=== PATIENT | female | born 1955 | race Caucasian/White ===

== ENCOUNTER 2016-09-28 15:16 | Observation (INO) | payer BC ==
[~2016-09-28] VITALS: Ht 172.7 cm; Wt 77.2 kg
[~2016-09-28 15:16] MED LIST: MULT-506 PO; [UNRECOGNIZED DRUG - CODE] PO
[2016-09-28] MEDS ORDERED: ASPIRIN 324 MG CHEW PO STA (15:37)
[2016-09-28] MEDS ORDERED: NITROGLYCERIN OINT 2% 1GM PACKET EXT ONE (15:45)
--- NOTE | 2016-09-28 15:54 | DIAGNOSTIC IMAGING REPORT ---
SINGLE VIEW CHEST CLINICAL HISTORY: Atypical chest pain. Dyspnea. FINDINGS: An AP, portable, upright chest radiograph is obtained. No prior studies are available for comparison at the time of dictation. The examination is degraded by portable technique and patient rotation. The cardiomediastinal silhouette is unremarkable. A calcified granuloma is seen in the left upper lobe. There are mild bibasilar airspace opacities. No large pleural effusion or pneumothorax is seen. The skeletal structures are osteopenic. The bony thorax is grossly intact. IMPRESSION: There are mild bibasilar airspace opacities. This could represent atelectasis versus an infectious/inflammatory pneumonitis. Clinical correlation will be required. Electronically signed by: Deniz Vazquez M.D. 09/28/2016 3:51 PM Dictated Date/Time: 09/28/2016 3:50 PM
[2016-09-28 16:06] LABS: BASO % 0.6 %; BASO ABS # 0.05 K/uL (0-0.2); COMPLETE YES; HEMATOCRIT 42.8 % (37-47); IG% 0.1 %; LYMPH ABS # 1.46 K/uL (1.2-3.4); MEAN CELL VOLUME 86.5 fL (80-100); MEAN CORPUSCULAR HEMOGLOBIN 29.9 pg (25-34); MEAN CORPUSCULAR HGB CONC 34.6 g/dl (32-36); MEAN PLATELET VOLUME 9.2 fL (7.4-10.4); MONO % 6.2 %; NEUT % 75.1 %; PLATELET COUNT 320 K/uL (130-400); RED BLOOD COUNT 4.95 M/uL (4.2-5.4); WHITE BLOOD COUNT 8.61 K/uL (4.8-10.8)
[2016-09-28 16:19] LABS: PARTIAL THROMBOPLASTIN RATIO 1.1; PROTHROMBIN TIME (PATIENT) 10.8 SECONDS (9.0-12.0)
[2016-09-28 16:25] LABS: BUN/CREATININE RATIO 16.5 (10-20); CALCIUM 9.4 mg/dl (8.5-10.1); CREATININE 0.87 mg/dl (0.60-1.20)
[2016-09-28] MEDS ORDERED: ONDANSETRON INJ 2 MG/ML 2 ML VIAL IV PRN (17:15)
[2016-09-28] MEDS ORDERED: NITROGLYCERIN 0.4 MG SL PER TAB CHARGE SL PRN (17:15)
[2016-09-28] MEDS ORDERED: ACETAMINOPHEN 325 MG TAB PO PRN (17:15)
[2016-09-28] MEDS ORDERED: CLORAZEPATE DIPOTASSIUM 3.75 MG TAB PO PRN (17:30)
--- NOTE | 2016-09-28 18:02 | History and Physical ---
History & Physical Date & Time of Service: Sep 28, 2016 at 17:20 Chief Complaint: Hypertension, Shortness Of Breath Primary Care Physician: Jay Fritz MD History of Present Illness Source: patient This is a 61 y/o female with PMHx as outlined below who presents to the ED c/o chest discomfort that began prior to arrival. Pt reports that a few weeks ago she developed chest pain after an intense workout. She describes the pain as 5/ 10 central chest "pressure" that radiated to the jaw. Her sxs eventually resolved with rest. Since that time, patient has noticed that her heart pounds and she is more SOB with minimal exertion especially walking up steps. Pt has been doing yoga but she has not attempted her usual workout routine for the past few weeks as she does not think she would be able to do it. This morning patient experienced mild chest "tightness" that did not radiate anywhere. She took her BP which was recorded at 200/100. Patient has never had issues with elevated blood pressure.The chest tightness resolved shortly after she took a clorazepate prior to arrival to the ED. Patient has never had similar sxs. She denies FmHx of cardiac disease. She denies history of tobacco use. Pt denies fever/chills, diaphoresis, palpitations, SOB, wheezing, abd pain, N/V, bowel or bladder issues, LE edema ,calf pain, lightheadedness/dizziness. In the ED, BP was 191/121 on arrival. It is now 157/92. Pt is afebrile with no leukocytosis. Initial troponin is negative and EKG shows no acute ischemic changes. Pt is currently chest pain free. She will be admitted for further evaluation and treatment. Past Medical/Surgical History Medical Problems: (1) Anxiety Status: Chronic Surgical Problems: (1) History of removal of ovarian cyst Permanent Comment: 1991 Status: Resolved Social History Smoking Status: Never Smoker Alcohol Use: socially Drug Use: none Marital Status: Housing status: lives with significant other Occupational Status: employed Multi-Drug Resistant Organisms History of MDRO: No Allergies Coded Allergies: No Known Allergies (Verified , 09/28/16) Home Medications Scheduled PRN Clorazepate Dipotassium (Tranxene T), 7.5 MG PO DAILY PRN for Anxiety Review of Systems Constitutional: No chills, No fatigue, No fever, No sweats, No weakness Eyes: No worsening of vision ENT: No hearing loss Respiratory: + dyspnea on exertion, + shortness of breath, No cough, No dyspnea at rest Cardiovascular: + chest pain, No claudication, No edema, No palpitations Abdomen: No constipation, No diarrhea, No nausea, No pain, No vomiting Musculoskeletal: No calf pain, No swelling Genitourinary - Female: No dysuria Neurologic: No weakness Psychiatric: No depression symptoms Endocrine: No fatigue Hematologic / Lymphatic: No abnormal bleeding/bruising Integumentary: No new/changing skin lesions Physical Exam Vital Signs Date Time Temp Pulse Resp B/P Pulse Ox O2 Delivery O2 Flow Rate FiO2 09/28/16 16:09 86 09/28/16 16:06 82 20 136/116 94 Room Air 09/28/16 15:22 36.7 110 18 191/121 95 Room Air General Appearance: WD/WN, no apparent distress, + pertinent finding (Pt is sitting up in bed with and daughter at bedside ) Head: normocephalic, atraumatic Eyes: normal inspection ENT: hearing grossly normal Neck: supple Respiratory/Chest: chest non-tender, lungs clear, normal breath sounds, no respiratory distress Cardiovascular: regular rate, rhythm, no edema, no murmur Abdomen/GI: normal bowel sounds, non tender, soft Back: normal inspection Extremities/Musculoskelatal: normal inspection, no calf tenderness, no pedal edema Neurologic/Psych: alert, normal mood/affect, oriented x 3 Skin: normal color, warm/dry Diagnostics Laboratory Results Results Past 24 Hours Test 09/28/16 15:50 09/28/16 15:56 Range/Units White Blood Count 8.61 4.8-10.8 K/uL Red Blood Count 4.95 4.2-5.4 M/uL Hemoglobin 14.8 12.0-16.0 g/dL Hematocrit 42.8 37-47 % Mean Corpuscular Volume 86.5 80-100 fL Mean Corpuscular Hemoglobin 29.9 25-34 pg Mean Corpuscular Hemoglobin Concent 34.6 32-36 g/dl Platelet Count 320 130-400 K/uL Mean Platelet Volume 9.2 7.4-10.4 fL Neutrophils (%) (Auto) 75.1 % Lymphocytes (%) (Auto) 17.0 % Monocytes (%) (Auto) 6.2 % Eosinophils (%) (Auto) 1.0 % Basophils (%) (Auto) 0.6 % Neutrophils # (Auto) 6.47 1.4-6.5 K/uL Lymphocytes # (Auto) 1.46 1.2-3.4 K/uL Monocytes # (Auto) 0.53 0.11-0.59 K/uL Eosinophils # (Auto) 0.09 0-0.5 K/uL Basophils # (Auto) 0.05 0-0.2 K/uL RDW Standard Deviation 41.9 36.4-46.3 fL RDW Coefficient of Variation 13.2 11.5-14.5 % Immature Granulocyte % (Auto) 0.1 % Immature Granulocyte # (Auto) 0.01 0.00-0.02 K/uL Prothrombin Time 10.8 9.0-12.0 SECONDS Prothromb Time International Ratio 1.0 0.9-1.1 Activated Partial Thromboplast Time 29.4 21.0-31.0 SECONDS Partial Thromboplastin Ratio 1.1 Sodium Level 140 136-145 mmol/L Potassium Level 4.0 3.5-5.1 mmol/L Chloride Level 104 98-107 mmol/L Carbon Dioxide Level 29 21-32 mmol/L Anion Gap 7.0 3-11 mmol/L Blood Urea Nitrogen 14 7-18 mg/dl Creatinine 0.87 0.60-1.20 mg/dl Est Creatinine Clear Calc Drug Dose 74.7 ml/min Estimated GFR () 83.3 Estimated GFR (Non- 71.9 BUN/Creatinine Ratio 16.5 10-20 Random Glucose 99 70-99 mg/dl Calcium Level 9.4 8.5-10.1 mg/dl Bedside Troponin I 0.000 0-0.045 ng/ml Diagnostic Radiology CXR IMPRESSION: There are mild bibasilar airspace opacities. This could represent atelectasis versus an infectious/inflammatory pneumonitis. Clinical correlation will be required. EKG EKG: NSR at 84 bpm with no acute ischemic changes noted; no change when compared with EKG from 08/31/15 Impression Assessment and Plan EXERTIONAL CHEST PAIN AND SOB; R/O ACS pt presented with a few weeks of exertional chest pain and SOB; no prior cardiac history -observation status to telemetry -no cardiac risk factors; chest discomfort may be related to significant elevation in BP (190s/120s in ED) -EKG shows NSR with no acute ischemic changes; repeat EKG PRN chest pain and in AM -Initial troponin is negative; continue to monitor with serial cardiac enzymes q6h -obtain echo to r/o cardiac wall motion abnormalities -check fasting lipid profile in AM -start ASA -consult cardiology, Dr. Dunn-pending input -pt is currently chest pain free -continue to monitor HYPERTENSIVE URGENCY -BP 191/121-improved with nitro paste; now 150s/90s -may be contributing to chest discomfort -consider PRN antihypertensive agents -continue to monitor closely DVT PROPHYLAXIS -subq Lovenox CODE STATUS -FULL CODE status DISPO Observation status until further workup is complete. Pt seen in collaboration with Dr. Vasquez. Please see his addendum for further details. Thanks! -Of note: patient will be seen by starting tomorrow AM. VTE Prophylaxis VTE Risk Assessment Done? Y/N: Yes Risk Level: Low Note ATTENDING ADDENDUM Record reviewed. Patient interviewed and examined in ED @ 18:15. Care coordinated with Kellie Butler PA-C. Please refer to her documentation for patient's history. Briefly, 61 YO female who is physically active and enjoys excellent health. Experiencing chest pressure and dyspnea on exertion over last 2 wks, initially while performing aerobic exercises. No noticing symptoms with low-moderate exertion. EXAM: General- no distress VS- as noted Neck- no JVD, carotids 2/2 bilat Lungs- clear to A&P Heart- RRR, no murmur, gallop, or rub appreciated Abdomen- + BS, soft, nontender Extremities- no pretibial edema or calf tenderness; radial and pedal pulses intact and symmetric Neuro- alert, oriented DATA: CBC, BUN, creatinine, potassium normal. Troponin I normal. Other lab studies as noted. CXR- "mild bibasilar opacities ... atelectasis vs an infectious / inflammatory pneumonitis" per Radiology. EKG performed at 15:56 reviewed and demonstrated NSR at 84 / minute, biphasic T- waves III, [address] depression V6. . ASSESSMENT AND PLAN: Recent onset exertional chest pressure and dyspnea. LDL cholesterol in clinic last year was 160. BP 191/121 upon presentation to ED. No history of hypertension; systolic BP usually runs around 140. No other risk factors for ischemic heart disease. Check serial cardiac markers and EKG's. Check rest echo. Consult Cardiology. Most likely that elevated BP is situational. Will follow and treat significantly elevated BP's as necessary. May need initiation of maintenance antihypertensive therapy if BP's remain elevated. ? abnormal chest x-ray as noted. No fever or cough. Doubt infectious process. Please refer to LOLA Butler's documentation for discussion of other issues. Abdelrahman Vasquez MD .
--- NOTE | 2016-09-28 18:16 | EMERGENCY ROOM VISIT NOTE ---
History Report prepared by Ariel: Nae Giordano Under the Supervision of: Dr. Michael Luna M.D. First contact with patient: 15:30 Chief Complaint: HYPERTENSION Stated Complaint: HYPERTENSION, SHORTNESS OF BREATH History of Present Illness The patient is a 61 year old female who presents to the Emergency Room with complaints of worsening shortness of breath that began a few weeks ago. The patient states that she did a hard work out and afterwards, noticed chest pain and jaw pain that resolved on its own. Since then, she has had increasing shortness of breath with exertion. She notes that she gets winded when she walks up stairs, which is unusual for her. She also develops chest tightness and a heart pounding sensation with exertion. She had chest tightness earlier today while she was exerting herself. Currently, she is not having any chest pain or tightness. The patient has been monitoring her blood pressure and noticed that it was elevated today. She has never been medicated for high blood pressure. She has not done any exercise other than yoga since her symptoms began a few weeks ago. Denies Cialis or Viagra use. Denies fevers, cough, sweating, nausea, vomiting, diarrhea, or other complaints. She reports a history of anxiety. The patient does not have a history of diabetes or hypertension. She is not a smoker. Source of History: patient Onset: a few weeks ago Position: other (global) Quality: other (shortness of breath) Timing: worsening Modifying Factors (Relieving): exertion Associated Symptoms: No cough, No diarrhea, No fevers, No nausea, No vomiting Note: Other symptoms: chest tightness & heart pounding with exertion Review of Systems See HPI for pertinent positives & negatives. A total of 10 systems reviewed and were otherwise negative. Past Medical & Surgical Medical Problems: (1) Anxiety (2) Chest pain Surgical Problems: (1) History of removal of ovarian cyst Family History No pertinent family history stated. Social History Smoking Status: Never Smoker Marital Status: Occupation Status: employed Current/Historical Medications Scheduled PRN Clorazepate Dipotassium (Tranxene T), 7.5 MG PO DAILY PRN for Anxiety Allergies Coded Allergies: No Known Allergies (Verified , 09/28/16) Physical Exam Vital Signs Date Time Temp Pulse Resp B/P Pulse Ox O2 Delivery O2 Flow Rate FiO2 09/28/16 17:00 85 18 157/92 95 Room Air 09/28/16 16:09 86 09/28/16 16:06 82 20 136/116 94 Room Air 09/28/16 15:22 36.7 110 18 191/121 95 Room Air Physical Exam Constitutional: Vital signs reviewed. Noted to be hypertensive. Eyes: Pupils are equal round reactive to light. Conjunctiva are noninjected. ENT: Pharynx is clear without erythema or exudate. Mucous membranes are moist. Neck supple without meningeal signs. Respiratory: Clear to auscultation bilaterally. Breath sounds are equal bilaterally. Cardiovascular: Regular rate and rhythm. No rubs or gallops. GI: Soft, nondistended and nontender. Bowel sounds are present. Musculoskeletal: No peripheral edema. No lower extremity tenderness. Integumentary: No cyanosis. Neurological: The patient is awake and alert. No focal deficits. Psychiatric: Normal affect. Medical Decision & Procedures ER Provider Diagnostic Interpretation: Radiology results as stated below per my review and the radiologist's interpretation: SINGLE VIEW CHEST CLINICAL HISTORY: Atypical chest pain. Dyspnea. FINDINGS: An AP, portable, upright chest radiograph is obtained. No prior studies are available for comparison at the time of dictation. The examination is degraded by portable technique and patient rotation. The cardiomediastinal silhouette is unremarkable. A calcified granuloma is seen in the left upper lobe. There are mild bibasilar airspace opacities. No large pleural effusion or pneumothorax is seen. The skeletal structures are osteopenic. The bony thorax is grossly intact. IMPRESSION: There are mild bibasilar airspace opacities. This could represent atelectasis versus an infectious/inflammatory pneumonitis. Clinical correlation will be required. Electronically signed by: Deniz Vazquez M.D. 09/28/2016 3:51 PM Dictated Date/Time: 09/28/2016 3:50 PM Laboratory Results 09/28/16 15:50 Red Blood Count 4.95, Mean Corpuscular Volume 86.5, Mean Corpuscular Hemoglobin 29.9, Mean Corpuscular Hemoglobin Concent 34.6, Mean Platelet Volume 9.2, Neutrophils (%) (Auto) 75.1, Lymphocytes (%) (Auto) 17.0, Monocytes (%) (Auto) 6.2, Eosinophils (%) (Auto) 1.0, Basophils (%) (Auto) 0.6, Neutrophils # (Auto) 6.47, Lymphocytes # (Auto) 1.46, Monocytes # (Auto) 0.53, Eosinophils # (Auto) 0.09, Basophils # (Auto) 0.05 09/28/16 15:50 Test 09/28/16 15:50 09/28/16 15:56 White Blood Count 8.61 K/uL (4.8-10.8) Red Blood Count 4.95 M/uL (4.2-5.4) Hemoglobin 14.8 g/dL (12.0-16.0) Hematocrit 42.8 % (37-47) Mean Corpuscular Volume 86.5 fL (80-100) Mean Corpuscular Hemoglobin 29.9 pg (25-34) Mean Corpuscular Hemoglobin Concent 34.6 g/dl (32-36) Platelet Count 320 K/uL (130-400) Mean Platelet Volume 9.2 fL (7.4-10.4) Neutrophils (%) (Auto) 75.1 % Lymphocytes (%) (Auto) 17.0 % Monocytes (%) (Auto) 6.2 % Eosinophils (%) (Auto) 1.0 % Basophils (%) (Auto) 0.6 % Neutrophils # (Auto) 6.47 K/uL (1.4-6.5) Lymphocytes # (Auto) 1.46 K/uL (1.2-3.4) Monocytes # (Auto) 0.53 K/uL (0.11-0.59) Eosinophils # (Auto) 0.09 K/uL (0-0.5) Basophils # (Auto) 0.05 K/uL (0-0.2) RDW Standard Deviation 41.9 fL (36.4-46.3) RDW Coefficient of Variation 13.2 % (11.5-14.5) Immature Granulocyte % (Auto) 0.1 % Immature Granulocyte # (Auto) 0.01 K/uL (0.00-0.02) Prothrombin Time 10.8 SECONDS (9.0-12.0) Prothromb Time International Ratio 1.0 (0.9-1.1) Activated Partial Thromboplast Time 29.4 SECONDS (21.0-31.0) Partial Thromboplastin Ratio 1.1 Anion Gap 7.0 mmol/L (3-11) Est Creatinine Clear Calc Drug Dose 74.7 ml/min Estimated GFR () 83.3 Estimated GFR (Non- 71.9 BUN/Creatinine Ratio 16.5 (10-20) Calcium Level 9.4 mg/dl (8.5-10.1) Bedside Troponin I 0.000 ng/ml (0-0.045) Laboratory results as reviewed by me. Medications Administered Medications (Trade) Dose Ordered Sig/Blossom Route Start Time Stop Time Status Last Admin Dose Admin Aspirin (Aspirin Chew) 324 mg NOW STAT PO 09/28/16 15:37 09/28/16 15:39 DC 09/28/16 16:03 324 MG Nitroglycerin (Nitroglycerin 2% Oint) 1 inch NOW ONCE EXT 09/28/16 15:45 09/28/16 15:46 DC 09/28/16 16:03 1 INCH ECG Indication: SOB/dyspnea Rate (beats per minute): 84 Rhythm: normal sinus Findings: no acute ischemic change, no ectopy ED Course 1537: The patient was evaluated in room B4. A complete history and physical exam was performed. Ordered Aspirin 324 mg PO. 1545: Ordered Nitroglycerin 1 inch EXT. 1622: I reassessed the patient and discussed test results with her. She has no chest pain at this time. Her blood pressure improved to 136/116. She agreed with the treatment plan. 1625: I discussed the case with Dr. Pedro Fletcher Hospitalist. The patient will be evaluated for further management. Medical Decision This is a 61-year-old female who presents with chest pain with exertion. Differential diagnosis includes unstable angina, MT, CHF, GERD, anxiety. I did perform a limited focused review of portions of the patient's old chart on the electronic medical record. The patient has had no recent pertinent visits to this hospital. I did evaluate the patient as noted above. IV access was established. The patient was placed on a continuous panel monitor. The patient is hypertensive. She was given nitroglycerin paste and an aspirin. I did order and personally review the patient's 12-lead EKG and chest x-ray as described above. I did order and review the patient's blood work as noted in the electronic medical record. I did discuss the test results with the patient. I did recommend hospitalization for repeat cardiac enzymes and further evaluation. I did discuss the case with the hospitalist and correctional case manager. Consults Time Called: 1620 Consulting Physician: Dr. Pedro Fletcher Hospitalist Returned Call: [phone] I discussed the case with him. The patient will be evaluated for further management. Impression Primary Impression: Exertional chest pain Scribe Attestation The scribe's documentation has been prepared under my direct and personally reviewed by me in its entirety. I confirm that the note above accurately reflects all work, treatment, procedures, and medical decision making performed by me. Departure Information Dispostion Being Evaluated By Hospitalist Referrals Jay Fritz MD (PCP) Patient Instructions My [facility]
[2016-09-28] MEDS ORDERED: IV FLUIDS COMPLETED PRN (18:45)
[2016-09-28] MEDS ORDERED: LABETALOL HCL IV 5 MG/ML 20ML IV PRN (19:00)
[2016-09-28] MEDS ORDERED: CLONIDINE HCL 0.1 MG TAB PO PRN (19:00)
[2016-09-28 19:38] VITALS: BP 156/91; PULSE 79; TEMP 36.9; O2SAT 96; Ht 172.7 cm; Wt 77.2 kg
[2016-09-28 20:19] VITALS: O2SAT 96
[2016-09-28] MEDS: ENOXAPARIN 40 MG/0.4 ML SYR SC SCH (20:51)
[2016-09-28 23:37] VITALS: BP 112/71; PULSE 61; TEMP 36.5; O2SAT 96
[2016-09-28 23:59] VITALS: O2SAT 96
[2016-09-29] VITALS (11 sets, daily range): BP systolic 109–149; BP diastolic 68–82; PULSE 68–84; TEMP 36.5–36.9; O2SAT 94–99
[2016-09-29] MEDS: ASPIRIN 81 MG CHEW PO SCH (07:39)
[2016-09-29 08:27] LABS: CHOLESTEROL 251 mg/dl (0-200); CHOLESTEROL/HDL RATIO 3.6; HDL CHOLESTEROL 69 mg/dl; LDL CHOLESTEROL CALCULATED 157 mg/dl; TRIGLYCERIDES 123 mg/dl (0-150); VERY LOW DENSITY LIPOPROT CALC 25 mg/dl
[2016-09-29] MEDS ORDERED: AMLODIPINE BESYLATE 5 MG TAB PO ONE ×2 (10:15→16:00)
--- NOTE | 2016-09-29 11:12 | ECHOCARDIOGRAM REPORT ---
*NOTICE TO RECEIVING [employer] This information is strictly Confidential and protected under [place] law. [place] law prohibits you from making any further disclosure of this information unless further disclosure is expressly permitted by the written consent of the person to whom it pertains or is authorized by law. A general authorization for the release of medical or other information is not sufficient for this purpose. Hospital accepts no responsibility if the information is made available to any other person, INCLUDING THE PATIENT. Interpretation Summary * Name: TERESA STAUFFER Study Date: 09/29/2016 09:56 AM BP: 149/69 mmHg * Patient Location: C.2T\S\S236\S\1 HR: 79 * : 1955 (M/d/yy) Gender: Female Height: 67 in * Age: 61 yrs Ethnicity: [place] Weight: 173 lb * Ordering Physician: Kellie Butler * Referring Physician: Self, Referred * Performed By: Sumaya Alonso RDCS * * Reason For Study: CHEST PAIN * BSA: 1.9 m2 * History: CHEST PAIN * -- Conclusions -- * Normal LV chamber size with borderline concentric LVH. * Normal LV systolic function, EF 60-65%. * No segmental left ventricular wall motion abnormalities are noted. * Grade I diastolic dysfunction. * The mitral valve leaflets appear thickened, but open well. There is trace mitral regurgitation. There is no mitral valve stenosis. Procedure Details * A complete two-dimensional transthoracic echocardiogram was performed (2D, M-mode, Doppler and color flow Doppler). Left Ventricle * The left ventricle is normal in size. * There is borderline concentric left ventricular hypertrophy. * Ejection Fraction = 60-65%. * Left ventricular systolic function is normal. * No segmental left ventricular wall motion abnormalities are noted. * The left ventricular wall motion is normal. Right Ventricle * The right ventricular cavity size is normal (basal dimension <4.2 cm in right ventricular apical 4-chamber view). * The right ventricular systolic function is normal as assessed by tricuspid annular plane systolic excursion (TAPSE) (normal >1.5 cm). Atria * The left atrial size is normal. * Right atrial size is normal. * No ASD detected; PFO is not assessed. Mitral Valve * The mitral valve leaflets appear thickened, but open well. * There is no mitral valve stenosis. * There is trace mitral regurgitation. Tricuspid Valve * The tricuspid valve is normal in structure and function. Aortic Valve * The aortic valve is normal in structure and function. Pulmonic Valve * The pulmonary valve is not well seen, but the Doppler examination is normal without significant regurgitation or stenosis. Great Vessels * The aortic root and proximal ascending aorta are normal sized. Pericardium/Pleural * There is no pericardial effusion. Left Ventricular Diastolic Function * Grade I diastolic dysfunction, (abnormal relaxation pattern). MMode 2D Measurements and Calculations IVSd 1.0 cm IVSs 1.5 cm LVIDd 3.8 cm LVIDs 2.5 cm LVPWd 1.2 cm LVPWs 1.4 cm IVS/LVPW 0.87 FS 33.9 % EDV(Teich) 60.3 ml ESV(Teich) 22.0 ml EF(Teich) 63.5 % EDV(cubed) 53.1 ml ESV(cubed) 15.4 ml EF(cubed) 71.1 % % IVS thick 46.2 % % LVPW thick 19.1 % LV mass(C)d 136.6 grams LV mass(C)dI 71.9 grams/m\S\2 LV mass(C)s 122.2 grams LV mass(C)sI 64.3 grams/m\S\2 CO(Teich) 2.5 l/min CI(Teich) 1.3 l/min/m\S\2 SV(Teich) 38.3 ml SI(Teich) 20.2 ml/m\S\2 CO(cubed) 2.5 l/min CI(cubed) 1.3 l/min/m\S\2 SV(cubed) 37.7 ml SI(cubed) 19.8 ml/m\S\2 Ao root diam 2.8 cm Ao root area 6.3 cm\S\2 LA dimension 3.2 cm LA/Ao 1.1 LVAd ap4 26.3 cm\S\2 LVLd ap4 8.0 cm EDV(MOD-sp4) 71.0 ml LVAs ap4 13.9 cm\S\2 LVLs ap4 6.2 cm ESV(MOD-sp4) 26.0 ml EF(MOD-sp4) 63.4 % LVAd ap2 25.5 cm\S\2 LVLd ap2 7.9 cm EDV(MOD-sp2) 69.0 ml LVAs ap2 13.6 cm\S\2 LVLs ap2 5.9 cm ESV(MOD-sp2) 27.0 ml EF(MOD-sp2) 60.9 % CO(MOD-sp4) 3.0 l/min CI(MOD-sp4) 1.6 l/min/m\S\2 SV(MOD-sp4) 45.0 ml SI(MOD-sp4) 23.7 ml/m\S\2 CO(MOD-sp2) 2.8 l/min CI(MOD-sp2) 1.5 l/min/m\S\2 SV(MOD-sp2) 42.0 ml SI(MOD-sp2) 22.1 ml/m\S\2 Doppler Measurements and Calculations MV E max susana 57.8 cm/sec MV A max susana 69.1 cm/sec MV E/A 0.84 MV dec time 0.28 sec Ao V2 max 136.7 cm/sec Ao max PG 7.5 mmHg Ao max PG (full) 0.50 mmHg LV V1 max PG 7.0 mmHg LV V1 max 132.0 cm/sec MR max susana 499.1 cm/sec MR max PG 99.7 mmHg
--- NOTE | 2016-09-29 11:24 | Progress Note ---
Internal Med Progress Note Date of Service: Sep 29, 2016. Provider Documentation: SUBJECTIVE: Patient is seen and examined at bedside. Currently denies any chest pain, SOB, palpitations, dizziness, headache. Offers no complaints. Planned for stress test in AM. OBJECTIVE: Vital Signs-as noted below Physical Exam: General Appearance:Moderately built and nourished, no apparent distress Head: normocephalic, Atraumatic Eyes: normal inspection, EOMI, PERRLA Neck: supple, JVD, Trachea midline Respiratory/Chest: Normal breath sounds, CTA Cardiovascular: S1, S2, No murmur Abdomen/GI:Soft, Non tender, Bowel sounds present Extremities/Musculoskelatal:normal inspection, no edema Neurologic/Psych:AAOX3, grossly no focal neurological deficits Skin: normal color, warm Lab data as noted below. ASSESSMENT & PLAN: EXERTIONAL CHEST PAIN AND SOB; R/O ACS pt presented with a few weeks of exertional chest pain and SOB; no prior cardiac history Troponin X 2: Negative EKG: no acute ischemic changes TSH: pending ECHO:No segmental left ventricular wall motion abnormalities are noted Grade I diastolic dysfunction, EF:60-65% Planned for stress test in AM Appreciate Cardiology help Continue aspirin HYPERTENSIVE URGENCY Presented with BP 191/121-improved with nitro paste Not on HTN meds at home Continue amlodipine which was started this admission Follow up renal artery duplex , metanephrines Currently BP controlled ANXIETY DISORDER: Continue home meds DVT PROPHYLAXIS SQ Lovenox CODE STATUS FULL CODE DISPOSITION: Continue monitoring in Tele PROCEDURES: ECHO: * Normal LV chamber size with borderline concentric LVH. * Normal LV systolic function, EF 60-65%. * No segmental left ventricular wall motion abnormalities are noted. * Grade I diastolic dysfunction. * The mitral valve leaflets appear thickened, but open well. There is trace mitral regurgitation. There is no mitral valve stenosis. Vital Signs: Date Time Temp Pulse Resp B/P Pulse Ox O2 Delivery O2 Flow Rate FiO2 09/29/16 15:20 36.9 79 17 131/82 94 Room Air 09/29/16 12:00 96 Room Air 09/29/16 11:11 36.7 76 16 137/74 94 Room Air 09/29/16 09:22 18 149/69 99 Room Air 09/29/16 08:09 36.5 79 20 125/81 96 Room Air 09/29/16 08:00 96 Room Air 09/29/16 04:00 96 Room Air 09/29/16 03:19 36.5 68 15 125/68 97 Room Air 09/28/16 23:59 96 Room Air 09/28/16 23:37 36.5 61 15 112/71 96 Room Air 09/28/16 20:19 96 Room Air 09/28/16 19:38 36.9 79 18 156/91 96 Room Air 09/28/16 19:01 85 20 141/87 95 Room Air Lab Results: Results Past 24 Hours Test 09/28/16 22:15 09/29/16 05:45 09/29/16 15:32 Range/Units Troponin I < 0.015 < 0.015 0-0.045 ng/ml Triglycerides Level 123 0-150 mg/dl Cholesterol Level 251 0-200 mg/dl HDL Cholesterol 69 mg/dl LDL Cholesterol, Calculated 157 mg/dl VLDL Cholesterol, Calculated 25 mg/dl Cholesterol/HDL Ratio 3.6 Thyroid Stimulating Hormone (TSH) 1.120 0.300-4.500 uIu/ml
--- NOTE | 2016-09-29 12:00 | CARDIOLOGY CONSULTATION ---
DATE OF CONSULTATION: 09/29/2016 DATE OF CONSULTATION: 09/29/2016. CONSULTATION REQUESTED BY: Kellie Gonzales PA-C. REASON FOR CONSULTATION: Chest pain. HISTORY OF PRESENT ILLNESS: Mrs. Scherer is a very pleasant 61-year-old woman who presented to [facility] Emergency Department on 09/28/2016 with a complaint of chest pressure. The patient states her symptoms initially started 1 week ago. She was doing a particularly intense aerobic workout video and when she completed the workout she developed some chest discomfort. She described it as a substernal pressure sensation without any associated symptoms. She denied any associated radiation of the discomfort, shortness of breath, diaphoresis, nausea, palpitations, lightheadedness, dizziness, or syncope. She states that at that time she sat down and cool down and the discomfort slowly subsided. Ever since though she has been particularly cognizant of any physical complaints and it has been making her rather anxious. She states that she has been noticing her heart seems to be pounding and she seems to be getting short of breath with tachycardia with minimal activity since that. She has refrained from doing any of her significant workouts but has been doing some of her light yoga routines. Then on the afternoon of 09/28/2016 she was doing some sweeping in her garage and she again developed the same substernal pressure sensation. At that time she went into the house, took her blood pressure and it was 200/100. This is new for her. She states her blood pressure at home normally runs in the 140s/70s and she came into [facility] Emergency Department. Upon arrival here, her blood pressure was documented at 191/121. She was given nitroglycerin and her pressure came down and her chest discomfort resolved. She has had no further discomfort overnight and states that she currently feels well. She denies any significant changes of diet lately nor any worsening stressors at home. PAST SURGICAL HISTORY: 1. Ovarian cyst removal. 2. Tubal ligation. 3. Fibroid embolization. 4. Breast biopsy. 5. Colonoscopy. MEDICAL ILLNESSES: Uterine leiomyoma. FAMILY HISTORY: Denies any premature coronary artery disease or sudden cardiac . SOCIAL HISTORY: Denies any tobacco use. Drinks rare alcohol. Denies any recreational drug use. She is . She lives at home with her . She has 2 children and 1 grandchild. She is currently employed as a nurse at [employer]. She exercises regularly. REVIEW OF SYSTEMS: As per HPI, all other review of systems reviewed and negative at this time. ALLERGIES: No known drug allergies. MEDICATIONS AN OUTPATIENT: Tranxene p.r.n. for anxiety. PHYSICAL EXAMINATION: VITAL SIGNS: Temperature 36.5, pulse 79, respiratory rate 12, blood pressure 125/81. GENERAL: Awake, alert, oriented x3 in no acute distress. HEAD, EYES, EARS, NOSE, AND THROAT: Normocephalic, atraumatic. Pupils equal, round, and reactive to light and accommodation. Extraocular muscles intact. Anicteric sclerae. Moist mucous membranes. NECK: No JVD, no bruit. CARDIOVASCULAR: Regular. No S4. Normal S1 and S2. No S3. No murmurs, rubs or gallops. PULMONARY: Clear to auscultation bilaterally. No rales, rhonchi, or wheezing. ABDOMEN: Bowel sounds x4, soft. No rebound, guarding, tenderness. No organomegaly. EXTREMITIES: No clubbing, cyanosis or edema. +2 pedal pulses bilaterally. SKIN: Warm and dry. TEST RESULTS: LABORATORY: Cardiac enzymes are negative x3, total cholesterol of 251, LDL 157, HDL 69, triglycerides 123. Sodium 140, potassium 4, BUN 14, creatinine 0.9. TSH and plasma metanephrines are pending. A 12-lead EKG performed in the Emergency Department independently reviewed at this time shows normal sinus rhythm at 84 beats per minute, normal axis, normal intervals, normal study. A 2D echocardiogram showed normal LV chamber size with borderline concentric LVH, normal LV systolic function without regional wall motion abnormality, EF 60-65%, grade 1 diastolic dysfunction, mild thickening of the mitral valve leaflets with trace mitral regurgitation. IMPRESSION: 1. Hypertensive urgency. 2. Chest pain likely due to #1. 3. Dyslipidemia. RECOMMENDATIONS: It was my pleasure to see Mrs. Scherer in consultation today. The patient was counseled that I suspect her episode is most likely due to hypertensive urgency. Even with ambulating in the halls, her blood pressure did come up to 150 systolic so at this time, I will start her on amlodipine 2.5 mg x1 now given the fact that she is naive to antihypertensives. Should she tolerate it well without any side effects now given an additional 2.5 mg this afternoon. She will then be started on 5 mg daily in the a.m. The secondary workup is pending including renal artery ultrasounds, TSH and plasma metanephrines but again her echocardiogram is unremarkable as is her EKG and cardiac enzymes. My plan is to hopefully control her blood pressure today and perform an exercise stress echocardiogram in the a.m. The patient is agreeable to the above plan. The case was discussed with her [id number], Dr. Morales. Thank you very much for allowing me to participate in the care of your patient.
--- NOTE | 2016-09-29 14:52 | DIAGNOSTIC IMAGING REPORT ---
DUPLEX RENAL ARTERY ULTRASOUND HISTORY: hypertension COMPARISON STUDY: None. FINDINGS: Right kidney measures 9.5 cm and the left kidney measures 10.9 cm. No hydronephrosis. The resistive indices of the bilateral renal arcuate arteries were less than 0.7. Bilateral renal veins are patent. Peak systolic velocity within the left renal artery is 89 cm/s. Peak systolic velocity within the mid right renal artery is 169 cm/s. There is a 2.5 cm hyperechoic mass within the upper pole of the left kidney IMPRESSION: 1. Top normal systolic velocity within the right renal artery of 169 cm/s. However, no hemodynamically significant stenosis. 2. No hemodynamically significant stenosis within the left renal artery. 3. A 2.5 cm hyperechoic mass within the upper pole of the left kidney. This likely represents an angiomyolipoma. Follow-up nonemergent abdominal CT can be used for confirmation. Electronically signed by: Simeon Ozuna M.D. 09/29/2016 2:50 PM Dictated Date/Time: 09/29/2016 2:44 PM
[2016-09-29] MEDS: ENOXAPARIN 40 MG/0.4 ML SYR SC SCH (21:03)
[2016-09-30 03:44] VITALS: BP 122/77; PULSE 81; TEMP 36.4; O2SAT 97
[2016-09-30 04:00] VITALS: O2SAT 96
[2016-09-30 07:40] VITALS: BP 122/85; PULSE 78; TEMP 36.7; O2SAT 95
[2016-09-30] MEDS ORDERED: AMLODIPINE BESYLATE 5 MG TAB PO SCH (09:00)
[2016-09-30 09:25] VITALS: BP 130/82; PULSE 82
[2016-09-30] MEDS: ASPIRIN 81 MG CHEW PO SCH (09:26)
--- NOTE | 2016-09-30 09:29 | Cardiology Follow-Up ---
Subjective Subjective Date of Service: Sep 30, 2016. Pt evaluation today including: conversation w/ patient, conversation w/ family , physical exam, chart review, lab review, review of studies, review of inpatient medication list Additional Details: Pt seen and examined, states that she feels well. No recurrence of chest discomfort. Tolerating amlodipine without issue. Denies cp, sob, palpitations, lightheadedness or dizziness. Tele reviewed; no arrhythmia or significant ectopy Problem List Medical Problems: (1) Exertional chest pain Status: Acute Review of Systems Respiratory: No cough, No dyspnea at rest, No dyspnea on exertion, No hemoptysis, No problem reported, No see HPI, No shortness of breath, No sputum, No wheezing Cardiac: No PND, No chest pain, No claudication, No edema, No orthopnea, No palpitations, No problem reported, No see HPI Objective Vital Signs Last Vital Signs Documentation Date Time Temp Pulse Resp B/P Pulse Ox O2 Delivery O2 Flow Rate FiO2 09/30/16 07:40 36.7 78 16 122/85 95 Room Air Physical Exam: General Appearance: WD/WN, no apparent distress Eyes: bilateral eyes EOMI, bilateral eyes PERRL, bilateral eyes normal inspection ENT: normal ENT inspection, hearing grossly normal, pharynx normal Neck: supple, no adenopathy, thyroid normal, no JVD, no carotid bruits, trachea midline Respiratory/Chest: chest non-tender, lungs clear, normal breath sounds, no respiratory distress, no accessory muscle use Cardiovascular: regular rate, rhythm, no edema, no gallop, no JVD, no murmur Abdomen: normal bowel sounds, non tender, soft, no organomegaly, no pulsatile mass Extremities: normal range of motion, non-tender, normal inspection, no pedal edema, no calf tenderness 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 chest pain resolved not reproduced on stress stress echo nonischemic likely hypertensive urgency no further cardiac work up necessary 2. HTN controlled slightly elevated response to exercise but will hold off further increase of amlodipine at this time given her naivety to meds would d/c home on amlodipine 5mg daily f/u with pcp for further management 3. dyslipidemia LDL of 157 will defer addition of statin at this time so as to not start multiple meds at once f/u with pcp ok to d/c to home from cardiac standpoint outpatient cardiac follow up not necessary
--- NOTE | 2016-09-30 09:31 | EXERCISE STRESS ECHO ---
*NOTICE TO RECEIVING CONSTITUTION PARTY AGENCY This information is strictly Confidential and protected under [place] law. [place] law prohibits you from making any further disclosure of this information unless further disclosure is expressly permitted by the written consent of the person to whom it pertains or is authorized by law. A general authorization for the release of medical or other information is not sufficient for this purpose. Hospital accepts no responsibility if the information is made available to any other person, INCLUDING THE PATIENT. Interpretation Summary * Name: TERESA STAUFFER Study Date: 09/30/2016 11:18 AM BP: 131/80 mmHg * Patient Location: .2T\S\S236\S\1 HR: 74 * : 1955 (M/d/yyy) Gender: Female Height: 68 in * Age: 61 yrs Ethnicity: [place] Weight: 173 lb * Ordering Physician: Eliecer Dunn * Referring Physician: Self, Referred * Performed By: Sumaya Alonso RDCS * * Reason For Study: CHEST PAIN * BSA: 1.9 m2 * History: CHEST PAIN * -- Conclusions -- * Nonischemic exercise stress echocardiogram. * No arrhythmias. * Normal HR and BP response to exercise. * Excellent exercise tolerance. * No symptoms reproduced. Procedure Details * ECHOEX, CPT #[id number] Left Ventricle * Resting wall motion: Normal. Stress wall motion: Appropriate increase in Left ventricular systolic function and decrease in cavity size. No stress induced segmental wall motion abnormalities. Stress Parameters * Normal baseline electrocardiogram. * Stress ECG: No ST changes. No arrhythmias. * No arrhythmia were noted with stress. * The stress portion of this study was personally supervised by the undersigned interpreting physician. * Rest heart rate was '74' BPM. * Rest blood pressure was '131/80' * Maximum heart rate achieved was 136 bpm. * Maximum heart rate was 85 % of maximum age-predicted heart rate. * Maximum blood pressure was '205/56' * Total exercise time was '11:38' * Maximum exercise MET level achieved was '13.40' METS * Maximum treadmill speed was '4.20' miles per hour. * Maximum treadmill elevation was '16.00'% grade. * Exercise was terminated due to 'ACHIEVING TARGET HR'
[2016-09-30 10:38] VITALS: BP 130/82; PULSE 82; TEMP 36.7; O2SAT 95
--- NOTE | 2016-09-30 10:45 | Progress Note ---
Internal Med Progress Note Date of Service: Sep 30, 2016. Provider Documentation: SUBJECTIVE: Patient is seen and examined at bedside. States feeling well. Denies chest pain , SOB, palpitations, dizziness, headache. Has stress test today. OBJECTIVE: Vital Signs-as noted below Physical Exam: General Appearance:Moderately built and nourished, no apparent distress Head: normocephalic, Atraumatic Eyes: normal inspection, EOMI, PERRLA Neck: supple, JVD, Trachea midline Respiratory/Chest: Normal breath sounds, CTA Cardiovascular: S1, S2, No murmur Abdomen/GI:Soft, Non tender, Bowel sounds present Extremities/Musculoskelatal:normal inspection, no edema Neurologic/Psych:AAOX3, grossly no focal neurological deficits Skin: normal color, warm Lab data as noted below. ASSESSMENT & PLAN: EXERTIONAL CHEST PAIN AND SOB; R/O ACS pt presented with a few weeks of exertional chest pain and SOB; no prior cardiac history Troponin X 2: Negative EKG: no acute ischemic changes TSH: WNL ECHO:No segmental left ventricular wall motion abnormalities are noted Grade I diastolic dysfunction, EF:60-65% Stress ECHO: Nonischemic Appreciate Cardiology help Chest pain likely secondary to HTN urgency HYPERTENSIVE URGENCY Presented with BP 191/121-improved with nitro paste Not on HTN meds at home Continue amlodipine 5mg daily Follow up renal artery duplex: No significant renal artery stenosis Metanephrines:pending Currently BP controlled ANXIETY DISORDER: Continue home meds DVT PROPHYLAXIS SQ Lovenox CODE STATUS FULL CODE DISPOSITION: Continue monitoring in Tele Plan to discharge home today Follow up with in 1 week. Patient prefers to call herself for appointment based on her schedule. PROCEDURES: ECHO: * Normal LV chamber size with borderline concentric LVH. * Normal LV systolic function, EF 60-65%. * No segmental left ventricular wall motion abnormalities are noted. * Grade I diastolic dysfunction. * The mitral valve leaflets appear thickened, but open well. There is trace mitral regurgitation. There is no mitral valve stenosis. Renal USD: 1. Top normal systolic velocity within the right renal artery of 169 cm/s. However, no hemodynamically significant stenosis. 2. No hemodynamically significant stenosis within the left renal artery. 3. A 2.5 cm hyperechoic mass within the upper pole of the left kidney. This likely represents an angiomyolipoma. Follow-up nonemergent abdominal CT can be used for confirmation. Vital Signs: Date Time Temp Pulse Resp B/P Pulse Ox O2 Delivery O2 Flow Rate FiO2 09/30/16 09:25 82 130/82 09/30/16 07:40 36.7 78 16 122/85 95 Room Air 09/30/16 07:27 Room Air 09/30/16 04:00 96 Room Air 09/30/16 03:44 36.4 81 20 122/77 97 Room Air 09/29/16 23:59 96 Room Air 09/29/16 23:39 36.8 84 16 109/71 96 Room Air 09/29/16 19:49 36.7 71 16 112/74 95 Room Air 09/29/16 19:20 Room Air 09/29/16 16:00 Room Air 09/29/16 15:20 36.9 79 17 131/82 94 Room Air 09/29/16 12:00 96 Room Air 09/29/16 11:11 36.7 76 16 137/74 94 Room Air Lab Results: Results Past 24 Hours Test 09/29/16 15:32 Range/Units Thyroid Stimulating Hormone (TSH) 1.120 0.300-4.500 uIu/ml
[2016-09-30] MEDS ORDERED: [UNRECOGNIZED DRUG - CODE] PO (10:47)
[2016-09-30] MEDS ORDERED: NRV5 PO (10:47)
--- NOTE | 2016-09-30 10:50 | Discharge Summary ---
Discharge Summary Date of Service Sep 30, 2016. Discharge Summary Admission Date: Sep 28, 2016 at 17:19 Discharge Date: Sep 30, 2016 Discharge Disposition: Home Principal Diagnosis: Hypertensive Urgency Procedures: ECHO: * Normal LV chamber size with borderline concentric LVH. * Normal LV systolic function, EF 60-65%. * No segmental left ventricular wall motion abnormalities are noted. * Grade I diastolic dysfunction. * The mitral valve leaflets appear thickened, but open well. There is trace mitral regurgitation. There is no mitral valve stenosis. Renal USD: 1. Top normal systolic velocity within the right renal artery of 169 cm/s. However, no hemodynamically significant stenosis. 2. No hemodynamically significant stenosis within the left renal artery. 3. A 2.5 cm hyperechoic mass within the upper pole of the left kidney. This likely represents an angiomyolipoma. Follow-up nonemergent abdominal CT can be used for confirmation. Stress ECHO: No inducible ischemia Consultations: Cardiology Pending Studies/Follow-Up: Follow up with in 1 week. Patient prefers to call herself for appointment based on her schedule. Medication Reconciliation New Medications: Amlodipine Besylate (Amlodipine Besylate) 5 Mg Tab 5 MG PO QAM for 30 Days, #30 TAB 1 Refill Continued Medications: Clorazepate Dipotassium (Tranxene T) 7.5 Mg Tab 7.5 MG PO DAILY PRN for Anxiety for 10 Days, #10 TAB (This prescription has been renewed) Admission Information HPI (per Admitting provider): This is a 61 y/o female with PMHx as outlined below who presents to the ED c/o chest discomfort that began prior to arrival. Pt reports that a few weeks ago she developed chest pain after an intense workout. She describes the pain as 5/ 10 central chest "pressure" that radiated to the jaw. Her sxs eventually resolved with rest. Since that time, patient has noticed that her heart pounds and she is more SOB with minimal exertion especially walking up steps. Pt has been doing yoga but she has not attempted her usual workout routine for the past few weeks as she does not think she would be able to do it. This morning patient experienced mild chest "tightness" that did not radiate anywhere. She took her BP which was recorded at 200/100. Patient has never had issues with elevated blood pressure.The chest tightness resolved shortly after she took a clorazepate prior to arrival to the ED. Patient has never had similar sxs. She denies FmHx of cardiac disease. She denies history of tobacco use. Pt denies fever/chills, diaphoresis, palpitations, SOB, wheezing, abd pain, N/V, bowel or bladder issues, LE edema ,calf pain, lightheadedness/dizziness. In the ED, BP was 191/121 on arrival. It is now 157/92. Pt is afebrile with no leukocytosis. Initial troponin is negative and EKG shows no acute ischemic changes. Pt is currently chest pain free. She will be admitted for further evaluation and treatment. Physical Exam (per Admitting): General Appearance: WD/WN, no apparent distress, + pertinent finding (Pt is sitting up in bed with and daughter at bedside ) Head: normocephalic, atraumatic Eyes: normal inspection ENT: hearing grossly normal Neck: supple Respiratory/Chest: chest non-tender, lungs clear, normal breath sounds, no respiratory distress Cardiovascular: regular rate, rhythm, no edema, no murmur Abdomen/GI: normal bowel sounds, non tender, soft Back: normal inspection Extremities/Musculoskelatal: normal inspection, no calf tenderness, no pedal edema Neurologic/Psych: alert, normal mood/affect, oriented x 3 Skin: normal color, warm/dry Hospital Course EXERTIONAL CHEST PAIN AND SOB; R/O ACS pt presented with a few weeks of exertional chest pain and SOB; no prior cardiac history Troponin X 2: Negative EKG: no acute ischemic changes TSH: WNL ECHO:No segmental left ventricular wall motion abnormalities are noted Grade I diastolic dysfunction, EF:60-65% Stress ECHO: Nonischemic Appreciate Cardiology help Chest pain likely secondary to HTN urgency HYPERTENSIVE URGENCY Presented with BP 191/121-improved with nitro paste Not on HTN meds at home Continue amlodipine 5mg daily Follow up renal artery duplex: No significant renal artery stenosis Metanephrines:pending Currently BP controlled ANXIETY DISORDER: Continue home meds DVT PROPHYLAXIS SQ Lovenox CODE STATUS FULL CODE DISPOSITION: Continue monitoring in Tele Plan to discharge home today Follow up with in 1 week. Patient prefers to call herself for appointment based on her schedule. PROCEDURES: ECHO: * Normal LV chamber size with borderline concentric LVH. * Normal LV systolic function, EF 60-65%. * No segmental left ventricular wall motion abnormalities are noted. * Grade I diastolic dysfunction. * The mitral valve leaflets appear thickened, but open well. There is trace mitral regurgitation. There is no mitral valve stenosis. Renal USD: 1. Top normal systolic velocity within the right renal artery of 169 cm/s. However, no hemodynamically significant stenosis. 2. No hemodynamically significant stenosis within the left renal artery. 3. A 2.5 cm hyperechoic mass within the upper pole of the left kidney. This likely represents an angiomyolipoma. Follow-up nonemergent abdominal CT can be used for confirmation. Total time spent on discharge = This includes examination of the patient, discharge planning, medication reconciliation, and communication with other providers. Discharge Instructions Discharge Instructions Date of Service Sep 30, 2016. Admission Reason for Admission: Chest Pain Discharge Discharge Diagnosis / Problem: Hypertensive Urgency Discharge Goals Goal(s): Decrease discomfort, Improve function Activity Recommendations Activity Limitations: resume your previous activity Exercise/Sports Limitations: as tolerated . Instructions / Follow-Up Instructions / Follow-Up Follow up with in 1 week. Patient prefers to call herself for appointment based on her schedule. Current Hospital Diet Patient's current hospital diet: AHA Diet (Heart Healthy) Discharge Diet Recommended Diet: AHA Diet (Heart Healthy) Pending Studies Studies pending at discharge: no Laboratory Results Lipid Panel Test 09/29/16 05:45 Range/Units Triglycerides Level 123 0-150 mg/dl Cholesterol Level 251 H 0-200 mg/dl HDL Cholesterol 69 mg/dl Cholesterol/HDL Ratio 3.6 LDL Cholesterol, Calculated 157 mg/dl Medical Emergencies . Who to Call and When: Medical Emergencies: If at any time you feel your situation is an emergency, please call 911 immediately. . Non-Emergent Contact Non-Emergency issues call your: Primary Care Provider Call Non-Emergent contact if: you have a fever, your pain is not controlled, your pain is worsening, your pain is unusual for you, you have any medication questions . . "Provider Documentation" section prepared by Bruce Lora. VTE Core Measure Inpt VTE Proph given/why not?: Enoxaparin (Lovenox)SQ
[2016-10-03 11:38] LABS: NORMETANEPHRINE PLASMA 64 pg/mL (<=148); TOTAL METANEPHRINE PLASMA 64 pg/mL (<=205)
== END 2016-09-30 11:50 | disposition home or self-care (01) ==
LOC: ENRESERVDT → ENRESERVTM → C.EDB 15:18 → C.2T 17:19 → EDBEDREQ 17:46
PROVIDERS: ADMIT Hospitalist; ATTEND Internal Medicine
DX: R07.9 Chest pain, unspecified (principal); I16.0 Hypertensive urgency; R06.02 Shortness of breath; F41.9 Anxiety disorder, unspecified; Z79.899 Other long term (current) drug therapy